=== PATIENT | female | born 1980 | race Caucasian/White ===

== ENCOUNTER → 2021-02-09 | Outpatient (CLI) | payer OTHER ==
--- NOTE | 2021-02-09 15:47 | XR ---
EXAMINATION TYPE: XR abdomen 2V DATE OF EXAM: 02/09/2021 3:08 PM CLINICAL HISTORY: Nausea and vomiting for 2 months. TECHNIQUE: Single supine KUB image of the abdomen is obtained. COMPARISON: 08/14/2016 FINDINGS: Cholecystectomy clips. Nonspecific, nonobstructive bowel gas pattern. Stool and gas are see n to the level of the rectum. No definite renal or ureteral calculi. Osseous structures are on remark able grossly. Upright view shows no free air. IMPRESSION: 1. Nonspecific, nonobstructive bowel gas pattern. No free air on the upright view. 2. Cholecystectomy clips.
== END | disposition home or self-care (01) ==
LOC: RADXRYALE 14:54
PROVIDERS: ATTEND Physician Assistant Medical
DX: R11.2 Nausea with vomiting, unspecified (principal); Z90.49 Acquired absence of other specified parts of digestive tract
CPT/HCPCS: 74019